=== PATIENT | female | born 1935 | race Caucasian/White ===

== ENCOUNTER 2019-03-31 15:09 | Inpatient (IN) ==
[2019-03-31] MEDS ORDERED: NS 500 ML IV ONE (15:40)
[2019-03-31] MEDS ORDERED: ZOFRAN IV ONE ×2 (15:44→18:39)
--- NOTE | 2019-03-31 15:44 | PROVIDER DOCUMENTATION ---
HPI-Abdominal Pain/GI Problem - General Chief Complaint: GI Bleed Stated Complaint: BLOOD IN STOOL Time Seen by Provider: 03/31/19 15:18 Source: patient, family Allergies/Adverse Reactions: Patient Allergies Allergy/AdvReac Type Severity Reaction Status Date / Time No Known Allergies Allergy Verified 05/18/16 22:30 Home Medications: Home Medication List Medication Instructions Recorded Confirmed Last Taken Type Aspirin 81 mg PO DAILY 09/05/15 03/14/19 03/13/19 09:00 History Cholecalciferol (Vit D3) [Vitamin 5,000 unit PO DAILY 09/05/15 03/14/19 03/13/19 09:00 History D3] Ondansetron Odt [Zofran 4 mg Odt] 4 mg PO Q6H PRN PRN #12 tablet 09/27/15 03/14/19 Unknown Rx Clopidogrel [Plavix] 75 mg PO DAILY 03/14/19 03/14/19 03/09/19 History Docusate Sodium [Colace] 200 mg PO BID 03/14/19 03/14/19 03/13/19 09:00 History Lisinopril 20 mg PO DAILY 03/14/19 03/14/19 03/13/19 09:00 History Omeprazole 40 mg PO DAILY 03/14/19 03/14/19 03/13/19 09:00 History Rosuvastatin Calcium 5 mg PO DAILY 03/14/19 03/14/19 03/13/19 09:00 History - History of Present Illness-ABD Nature of Presenting Problems: 84 YO F pmh for vascular disease, s/p multiple stent placement (not around heart) and endarterectomy presents with episode of BRBPR since BM today, feelings of n/v and being faint. Assoicated abdominal pain. Recent lung biopsy for a lung mass and currently on tx for pna with Levoquin. Also TOPHER and due for infusions on next week. Follows with Dr. Meneses. Stents placed in [place] by vascular surgeon 2 years ago. Abdominal Pain Onset Location: reports: generalized abdomen Pain Radiation: reports: no radiation Quality of Pain: reports: aching, cramping Severity in ED: reports: moderate Onset/Duration: reports: this morning Timing: reports: still present, intermittent Activities at Onset: reports: eating Exposure to sick contacts?: No Modifying Factors: improves with: nothing Last BM: this afternoon Dark Stools Present?: reports: bright red blood Review of Systems - Adult - REVIEW OF SYSTEMS - ADULT Constitutional: denies: chills, fever Eyes: reports: no symptoms reported Ears, Nose, Mouth & Throat: reports: no symptoms reported Cardiovascular: denies: chest pain, edema, palpitations Respiratory: reports: no symptoms reported Gastrointestinal: reports: see HPI, abdominal pain, nausea, vomiting Musculoskeletal: reports: no symptoms reported Neurological: reports: dizziness/vertigo, syncope Hematologic/Lymphatic: reports: low blood count, transfusions, other (TOPHER) Past History - Adult - PAST MEDICAL HISTORY-ADULT Review of Records: reports: Old Records Reviewed, Social history reviewed & non-contributory. Major Childhood Illnesses: reports: denies history Cardiovascular: reports: HTN, hyperlipidemia Gastrointestinal: reports: GERD Obstetrical/Gynecological: reports: uterine/ovarian cancer (IN 1958) - PRIOR SURGERIES/PROCEDURES Surgical/Procedure History: reports: appendectomy, tonsillectomy, other (GALLBLADDER) - IMMUNIZATION STATUS Childhood Immunizations: See Nurse Assessment Flu Vaccine: See Nurse Assessment - FAMILY HISTORY Family History: reviewed, not pertinent - SOCIAL HISTORY Substance Use: denies Living Situation: family () Physical Exam-General - PHYSICAL EXAM-ADULT Initial Vital Signs Reviewed: Yes - CONSTITUTIONAL General Appearance: alert, other (looks weak) - EYES Eyes: PERRL/EOMI, pink conjunctivae - HEAD, EARS, NOSE, MOUTH & THROAT HENMT: normocephalic/atraumatic, other (dry membranes) - RESPIRATORY Respiratory: chest non-tender, lungs clear, normal breath sounds - CARDIOVASCULAR Cardiovascular: regular rate, rhythm - GASTROINTESTINAL (ABDOMEN) Abdominal Exam: soft. negative: distended, guarding, rebound, tenderness, hernia, mass - MUSCULOSKELETAL Back Exam: normal inspection - SKIN Integumentary: normal color, normal turgor, warm/dry - NEUROLOGIC Neurologic: grossly normal - PSYCHIATRIC Psych/Mental Status: normal mood/affect, oriented x 3 Progress - PLAN OF CARE/RESULTS Progress/Plan/Lab Results: Vital Signs - 8 hr 03/31/19 15:12 Temperature 97.8 F Pulse Rate 73 Respiratory Rate 18 Blood Pressure 143/59 O2 Sat by Pulse Oximetry 95 Orders Category Date Time Status Nursing- Obtain EKG ONCE Care 03/31/19 15:40 Active Saline Loc NOW Care 03/31/19 15:37 Active NPO Diet 03/31/19 15:[address] ABD/PELVIS W/IV CONT ONLY [CT] Stat Exams 03/31/19 15:39 Ordered CBC WITH ELECTRONIC DIFF [HEME] Stat Lab 03/31/19 15:37 Uncollected COMPREHENSIVE METABOLIC PANEL [CHEM] Stat Lab 03/31/19 15:39 Uncollected PROTIME WITH INR [COAG] Stat Lab 03/31/19 15:39 Ordered PTT [COAG] Stat Lab 03/31/19 15:39 Ordered TYPE & SCREEN [BBK] Stat Lab 03/31/19 15:40 Uncollected 0.9% Sodium Chloride Inj [Ns] 500 ml Med 03/31/19 15:40 Active IV 999 mls/hr EKG [EKG] Stat Ther 03/31/19 15:37 Ordered Result Diagrams: 03/31/19 16:01 03/31/19 16:01 - REASSESSMENT Reassessment #1 Time Reassessed: 17:14 Status: improving (labs reviewed and acceptable. CT pending) - EKG 1 Time of EKG reading by physician:: 16:33 EKG Read and Signed by:: Florentino Zuluaga EKG Interpretation (*Must complete 3 of following elements*): Abnormal Rate: 64 Rhythm: NSR [place]: normal QRS: other (2mm q waves in v5) ST Wave: non-specific ST changes (inverted p waves V1,) Prior EKG Comparison: no prior EKG - CONSULTS/PCP/HOSPITALIST Notification #1 *Consult/PCP/Hospitalist*: Dr. Copeland Time Discussed: 18:09 Consult Disposition: Will see in ED Departure - Departure Date of Disposition Decision: 03/31/19 Time of Disposition Decision: 19:04 DIAGNOSIS: Diverticulitis, Abdominal pain, Rectal bleeding Disposition: ADMITTED INPATIENT 09 Certified Medical Emergency: Emergent Condition: Stable Referrals and Follow-Ups: Arjun Huang MD [Primary Care Provider] - - Critical Care Note This patient required my direct & personal management of CC.: No Attestation - Physician/ DAYNE Attestation The physician spent face to face time with patient:: No Advanced Practice Provider documentation review:: Supervising physician onsite and consulted in the evaluation and care of this patient. The physician did not have a face to face encounter with the patient.
[2019-03-31 16:16] LABS: BASO# 0.05 X1000 (0.0-0.2); BASO% 0.4 % (0.0-0.8); EOS# 0.09 X1000 (0.0-0.7); EOS% 0.7 % (0.0-10.0); HEMATOCRIT 36.4 % (37.0-47.0); HEMOGLOBIN 10.9 g/dL (12.0-16.0); IMM GRAN# 0.06 X1000 (0.0-0.04); IMM GRAN% 0.5 % (0.0-0.5); LYMPH# 0.96 X1000 (1.2-3.4); LYMPH% 7.8 % (20.5-51.1); MCH 26.5 PG (27-31); MCHC 29.9 g/dL (33-37); MCV 88.6 FL (81-99); MONO# 0.95 X1000 (0.11-0.59); MONO% 7.7 % (1.7-9.3); MPV 11.1 FL (7.4-10.4); NEUT# 10.21 X1000 (1.4-6.5); NEUT% 82.9 % (42.2-75.2); PLT 327 X1000 (130-400); RBC 4.11 XMIL (4.2-5.4); RDW 14.8 % (11.5-14.5); WBC 12.32 X1000 (4.8-10.8)
[2019-03-31 16:42] LABS: INR 0.99; PROTIME 13.2 Seconds (11.0-16.0)
[2019-03-31 16:43] LABS: PTT 38.7 Seconds (22.3-41.8)
--- NOTE | 2019-03-31 16:49 | EKG Report ---
Test Performed on : 03/31/2019 4:31:45 PM Test Reason : CP Blood Pressure : / mmHG Vent. Rate : 064 BPM Atrial Rate : 064 BPM P-R Int : 166 ms QRS Dur : 086 ms QT Int : 440 ms P-R-T Axes : 066 -12 082 degrees QTc Int : 453 ms Normal sinus rhythm. Possible Left atrial enlargement Cannot rule out Inferior infarct , age undetermined Abnormal ECG No previous ECGs available Unconfirmed Result
[2019-03-31 16:52] LABS: ALB/GLOB RATIO 1.3; CALCIUM 9.3 mg/dL (8.8-10.2); POTASSIUM 4.5 mmol/L (3.5-5.1); TOTAL BILIRUBIN 0.22 mg/dL (0.20-1.00); TOTAL PROTEIN 7.1 g/dL (6.3-8.3)
--- NOTE | 2019-03-31 17:40 | Diag Imaging Result Doc PS360 ---
EXAM: CT ABD/PELVIS W/IV CONT ONLY INDICATION: abd pain, BRBPR TECHNIQUE: This exam was performed using automated exposure control, adjustment of mA or kV according to patient size, and/or use of iterative reconstruction technique. COMPARISON: None. FINDINGS: There is a moderate-sized right pleural effusion and right basilar atelectasis. There has been a prior cholecystectomy. There are several calcified granulomata in the liver and spleen. The pancreas and adrenal glands are grossly unremarkable. There are several small renal cysts bilaterally. There is no hydronephrosis. The kidneys are grossly unremarkable, otherwise. The urinary bladder appears normal. There is advanced diverticulosis coli. There is mild inflammatory stranding that appears to emanate from a diverticulum at the proximal sigmoid colon indicating diverticulitis. No pericolonic abscess or free abdominal gas is appreciated. There are a few loops of small bowel with mild distention likely representing mild ileus. There is nothing that would necessarily indicate obstruction. There is a very small hiatal hernia. The remainder of the GI tract is essentially unremarkable. There is extensive aortoiliac atherosclerotic calcification. There are stents in the SMA and in the left renal artery. They appear to be patent. There has been prior vertebroplasty at T12. There is no evidence of acute osseous abnormality. IMPRESSION: 1.Mild diverticulitis involving the proximal sigmoid colon with no CT evidence of perforation. 2.Moderate-sized right pleural effusion and right basilar atelectasis. 3.A few mildly distended loops of small bowel indicating mild ileus. 4.Other incidental/nonacute findings detailed above. Electronically signed by Brandon Tejeda 03/31/2019 5:38 PM
[2019-03-31] MEDS ORDERED: FLAGYL 500 MG/NS 500 MG/100 ML IVPB IV ONE (18:05)
[2019-03-31] MEDS ORDERED: ROCEPHIN 1 GM in NS 50 ML IV ONE (18:06)
[2019-03-31] MEDS ORDERED: MORPHINE IV ONE (18:39)
--- NOTE | 2019-03-31 19:48 | HISTORY AND PHYSICAL ---
PRIMARY CARE PROVIDER: Dr. Haresh Delarosa ONCOLOGIST: Arjun Huang MD VASCULAR SURGEONS: Dr. Jordan Chaudhry and Rsohan Canela MD CHIEF COMPLAINT: Bright red blood and abdominal cramping. HISTORY OF PRESENT ILLNESS: Ms. Izaguirre is an 84-year-old female who carries a past medical history of carotid artery disease, arthritis, high blood pressure, uterine and cervical cancer status post total hysterectomy, recent diagnosis of lung mass that was found to be benign after a CT-guided biopsy. She was also being treated for pneumonia on Wednesday. This morning, when she got up and had breakfast, she started having immediate stomach cramps. She went to the bathroom and had bright red blood per rectum. She had a total of 3 vomiting episodes and she came to the ED to be evaluated where she was found to have mild diverticulitis and a mild ileus. She does report that she has 3 stents in her abdomen from where a place had closed up. Those were placed by Dr. Chaudhry with vascular in [place]. She was initiated on IV antibiotics. We place her on IV fluids, antiemetics and pain regimen. PAST MEDICAL HISTORY: 1. Carotid artery disease. 2. Vasculopathic. 3. Hypertension. 4. GERD. PAST SURGICAL HISTORY: 1. Total hysterectomy. 2. Left carotid endarterectomy. 3. Three stents in the lower abdomen. The last one was on 12/12/2018. 4. CT-guided left upper lobe pulmonary mass biopsy. 5. Appendectomy. 6. Cholecystectomy. 7. Tonsillectomy. FAMILY HISTORY: Father in his sleep at the age of 65. Maternal grandmother with diabetes. Sister with diabetes. Mother with breast cancer at the age of 87, lived to be 93. SOCIAL HISTORY: She is . is at bedside. She is from [place]. She was a heavy smoker for more than 40 years, a pack to a pack and half per day. She quit smoking yesterday. No alcohol or illicit drug use. She has 1 daughter who is 65 years of age. REVIEW OF SYSTEMS: Twelve-point review of systems completely negative except for those mentioned in HPI. ALLERGIES: No known drug allergies. MEDICATIONS: Home medications are currently being compiled. However, she states she does no longer take a statin. PHYSICAL EXAMINATION: VITAL SIGNS: Temperature was 97.8 degrees, heart rate 85, respirations 14, blood pressure 150/62, O2 is 99% on room air. GENERAL: Ms. Izaguirre is a pleasant 84-year-old female who is sitting up in the bed in no acute distress, although she did have an episode of nausea and had to sit up. HEENT: Atraumatic, normocephalic. PERRL. NECK: Supple trachea midline. CARDIOVASCULAR: S1, S2 appreciated. No murmurs, gallops, or rubs noted. RESPIRATORY: Lung sounds clear bilaterally. No rales, rhonchi, or wheezes. GASTROINTESTINAL: Soft, diffusely tender. Hypoactive bowel sounds. LOWER EXTREMITIES: Negative for edema. NEUROLOGIC: No focal deficits noted. LAB/DIAGNOSTIC DATA: Abdomen and pelvis CT showed mild diverticulitis involving the proximal sigmoid colon without perforation. Moderate size right pleural effusion and right basilar atelectasis. A few mildly distended loops of small bowel indicating mild ileitis. Small hiatal hernia. Extensive aortic iliac atherosclerotic calcification. Stents in the SMA and in the left renal artery and prior vertebroplasty at T12. ASSESSMENT/PLAN: 1. Mild diverticulitis. The patient has had bright red blood per rectum. She has been on recent antibiotic with Levaquin. We will check occult stools as well as stool studies. Rule out Clostridium difficile. Continue antibiotics with Zosyn. 2. Mild ileus, currently NPO. We will chips and sips unless Dr. Copeland lets her have a clear liquid diet. 3. Recent diagnosis of pneumonia on Wednesday. We will continue with IV Zosyn. 4. Right lung mass that is benign. 5. Anemia. The patient will be getting iron infusion next week with Dr. Huang-she has already gotten a B12 shot. 6. Hypertension. 7. Peripheral vascular disease. 8. Gastroesophageal reflux disease. Code status DNR level 1 per patient's has been at bedside. She does have a living will. She states it is on file here. 9. Further recommendation to follow physician evaluation, laboratory and diagnostic data. Dictated by ARTURO White for Jaime Copeland MD cc: MD Ravi Franco MD Robert C. Walker, MD
--- NOTE | 2019-03-31 19:58 | HISTORY AND PHYSICAL ---
ADDENDUM: SUBJECTIVE: Ms. Izaguirre is a patient of Dr. Chaudhry, the vascular surgeon in [facility]. She has undergone multiple stent placements in the abdominal artery circulation, SMA and the renal artery. She also follows up with Dr. Huang for iron deficiency and B12 deficiency. Ms. Izaguirre was recently diagnosed with pneumonia and was started on Levaquin for the past 3 days. She refers that this morning she started having some cramping abdominal pain. At some point, she passed out and then after she recovered, she wanted to use the restroom, which was just pure bright red blood. She then got scared, so she came to the emergency department where she was evaluated and she has been admitted for abdominal pain and proximal sigmoid diverticulitis and ileus. OBJECTIVE: Vital signs: Blood pressure is 150/62, pulse of 85, respiration is 18, temperature is 97.8 degrees. General: Ms. Izaguirre is an 84-year-old elderly female. She is in bed no distress. Mucosa is pink and moist. Anicteric. Acyanotic. Neck: Supple. Abdomen: Soft. It is minimally tender everywhere but no guarding, no rebound. Bowel sounds are present. Extremities: No pedal edema. 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 LABORATORIES: Patient's lab works have also been reviewed and no major abnormalities. Her white cell count is 12.32, hemoglobin is 10.9, platelet count of 327,000. IMAGING: The CT scan of the abdomen and pelvis showed a mild diverticulitis involving the proximal sigmoid colon, moderate-sized right pleural effusion and right basilar atelectasis, a few my mildly distended loops of small bowel indicating mild ileus. There is also extensive aortoiliac atherosclerotic calcification, stents in the SMA and the left renal artery. They appeared to be patent. ASSESSMENT: 1. Painful bright red blood per rectum. For now, the patient seems to be hemodynamically stable. We are going to be following up on her hemoglobin and hematocrit. She has not had any more bowel movement; however, if she continues profusely bleeding, we will get Gastroenterology tonight. 2. Mild diverticulitis of the proximal sigmoid colon. The patient will be started on broad- spectrum IV antibiotics. 3. Distended loops of small bowel indicative of mild ileus with the history of severe or extensive aortoiliac atherosclerotic calcification and the rectal bleed. This is also concerning for ischemic enterocolitis. I have ordered the lactate level to check on that and we will keep eye on her other lab work. 4. Status post superior mesenteric artery stent placement and the left renal artery stent placement due to atherosclerosis. The patient follows up with Dr. Chaudhry. 5. History of iron deficiency and B12 deficiency. Follows up with Dr. Huang. We will notify them. 6. Please refer to the details of history and physical which has been dictated in the chart by the Nurse Practitioner. cc: Jaime Copeland MD
[2019-03-31] MEDS ORDERED: ZOFRAN IV PRN ×2 (20:21)
[2019-03-31] MEDS ORDERED: NS 1,000 ML IV SCH (20:21)
[2019-03-31] MEDS ORDERED: APRESOLINE IV PRN (20:21)
[2019-03-31] MEDS: ZOSYN 3.375 GM in NS 50 ML IV SCH (23:00)
[2019-03-31] MEDS: NS 1,000 ML IV SCH (23:00)
[2019-03-31] MEDS: MORPHINE IV PRN (23:05)
[2019-04-01] MEDS: ZOSYN 3.375 GM in NS 50 ML IV SCH ×4 (05:34→22:48)
[2019-04-01 07:55] LABS: BASO# 0.08 X1000 (0.0-0.2); BASO% 0.7 % (0.0-0.8); EOS# 0.34 X1000 (0.0-0.7); HEMATOCRIT 31.8 % (37.0-47.0); HEMOGLOBIN 9.4 g/dL (12.0-16.0); IMM GRAN# 0.03 X1000 (0.0-0.04); IMM GRAN% 0.3 % (0.0-0.5); LYMPH# 1.75 X1000 (1.2-3.4); LYMPH% 15.7 % (20.5-51.1); MCH 26.7 PG (27-31); MCHC 29.6 g/dL (33-37); MCV 90.3 FL (81-99); MONO# 1.26 X1000 (0.11-0.59); MONO% 11.3 % (1.7-9.3); NEUT# 7.71 X1000 (1.4-6.5); PLT 286 X1000 (130-400); RBC 3.52 XMIL (4.2-5.4); RDW 14.9 % (11.5-14.5); WBC 11.17 X1000 (4.8-10.8)
--- NOTE | 2019-04-01 08:18 | PROGRESS NOTE ---
DATE: 04/01/2019 SUBJECTIVE: This morning, Ms. Izaguirre refers to be doing a lot better. Abdominal pain has improved. She has not had any rectal hemorrhaging. However, according to the nurse, there was a little stain in her Pampers. OBJECTIVE: Vital signs: Blood pressure is 123/ 66, pulse of 60, respiration is 17, temperature is 98 degrees. General: Ms. Izaguirre is an 84-year-old female. She is in bed no distress. HEENT: Mucosa is pink and moist. Anicteric. Acyanotic. Neck: Supple. Chest: Good air entry bilaterally. There was no crepitations, no rhonchi. Cardiovascular: Regular rate and rhythm. Abdomen: Soft, minimally tender periumbilically but no rebound, no guarding. Central nervous system: Patient was awake, alert, oriented. There is no focal neurological deficit. LABORATORY DATA: Not ready at the time of the dictation. ASSESSMENT AND PLAN: 1. Painful rectal bleed. The patient seems to be hemodynamically stable. It does not appear that she continues to be bleeding. Will be waiting on her hemoglobin and hematocrit and go from there. 2. Mild diverticulitis of the proximal sigmoid colon. The patient has been started on broad- spectrum antibiotics. She seems to be responding well. Abdominal pain has significantly improved. 3. Mild ileus on admission. 4. 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 The patient follows up with Dr. Chaudhry in [facility]. 5. History of iron and B12 deficiency. Patient follows up with Dr. Huang. We will continue with the replacement. DISPOSITION: In general, I think Ms. Izaguirre is doing a lot better. She does not seems to be hemorrhaging anymore. Will be pending her hemoglobin and hematocrit this morning and address possible transfusion. She will continue with the current antimicrobial coverage and we will follow her hemodynamically. cc: [facility]eland [facility]
[2019-04-01 08:22] LABS: ALB/GLOB RATIO 1.2; ALBUMIN 3.3 g/dL (3.5-5.0); CALCIUM 7.7 mg/dL (8.8-10.2); MAGNESIUM 1.9 mg/dL (1.5-2.7); TOTAL BILIRUBIN 0.28 mg/dL (0.20-1.00)
[2019-04-01 13:51] LABS: HEMATOCRIT 31.6 % (37.0-47.0); HEMOGLOBIN 9.3 g/dL (12.0-16.0)
[2019-04-01] MEDS: NS 1,000 ML IV SCH (18:29)
[2019-04-01] MEDS: MORPHINE IV PRN (18:41)
[2019-04-02] MEDS: NS 1,000 ML IV SCH (03:04)
[2019-04-02] MEDS: ZOSYN 3.375 GM in NS 50 ML IV SCH ×4 (04:31→22:13)
[2019-04-02 08:06] LABS: HEMATOCRIT 31.1 % (37.0-47.0); HEMOGLOBIN 9.1 g/dL (12.0-16.0); MCH 26.6 PG (27-31); MCHC 29.3 g/dL (33-37); MCV 90.9 FL (81-99); MPV 11.4 FL (7.4-10.4); RBC 3.42 XMIL (4.2-5.4); RDW 14.9 % (11.5-14.5); WBC 9.95 X1000 (4.8-10.8)
[2019-04-02 08:20] LABS: CALCIUM 8.1 mg/dL (8.8-10.2); CREATININE 0.9 mg/dL (0.5-0.9); PHOSPHORUS 2.3 mg/dL (2.7-4.5); POTASSIUM 4.2 mmol/L (3.5-5.1)
--- NOTE | 2019-04-02 14:04 | PROGRESS NOTE ---
DATE: 04/02/2019 This morning Ms. Izaguirre refers to be doing a lot better. She said she had a very good bowel movement yesterday which did not have any blood at all. OBJECTIVE: Vital signs: Blood pressure is 140/42, pulse of 75, respirations 22, temperature 98.8 degrees. General: Ms. Izaguirre is an 84-year-old female. She is in bed, no distress. HEENT: Mucosa is pink and moist. Anicteric. Acyanotic. Neck: Supple. Chest: Clear to auscultation. There are no crepitations, no rhonchi. Cardiovascular: Regular rate and rhythm. No murmurs. Abdomen: Soft, nontender. Bowel sounds present. Extremities: No pedal edema. 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 LABORATORY DATA: WBC 9.95, hemoglobin 9.1, platelet count of 282,000. Chemistry is reviewed; it is completely normal. Phosphorus is 2.3. MICROBIOLOGY DATA: The patient's C difficile toxin was negative; however, the antigen is positive. The patient is currently not symptomatic, so I do not think she needs to be treated for that. ASSESSMENT: 1. Painful rectal bleed. This is resolved. Hemoglobin and hematocrit are fairly stable. 2. Mild diverticulitis of the proximal sigmoid colon. The patient is on broad- spectrum IV antibiotics. 3. Mild ileus on presentation, improved. 4. Status post SMA and left renal artery stent placement by Dr. Chaudhry in [facility]. The CT scan on presentation seems to suggest that the stents are in place and patent. 5. History of iron and B12 deficiency. Patient follows up with Dr. Huang. 6. Recently treated for a right lower lobe pneumonia. 7. Right lower lobe pleural effusion on the recent CT scan. Patient is currently asymptomatic. In general, Ms. Izaguirre got admitted because of abdominal pain and rectal bleed which have resolved. CT scan did reveal a mild diverticulitis. She is currently on antimicrobial coverage. She is feeling a lot better. I think we can switch her antibiotics oral and discharge her tomorrow. She will need to continue to follow up with Dr. Chaudhry and Dr. Huang. cc: Jaime Copeland MD [facility]
--- NOTE | 2019-04-02 16:17 | CONSULTATION ---
DATE OF CONSULTATION: 04/02/2019 Patient is seen. Detail note to follow. IMPRESSION: 1. Abdominal pain and rectal bleeding. Rule out ischemic colitis in view of her extensive vascular disease and superior mesenteric artery stents. 2. Possible diverticulitis. 3. Ileus secondary to colon related problem. 4. Extensive atrial sclerotic disease. 5. Iron and B12 deficiency. 6. Right lower lobe pneumonia. PLAN: Continue symptomatic treatment. The bleeding has since stopped. The patient is doing better. Advance the diet as tolerated. cc: Jamal Tolbert MD
[2019-04-02] MEDS: CULTURELLE PO SCH (21:34)
[2019-04-03] MEDS: ZOSYN 3.375 GM in NS 50 ML IV SCH ×2 (05:35→10:57)
[2019-04-03 07:33] VITALS: BP 179/58
[2019-04-03 07:44] LABS: HEMATOCRIT 29.9 % (37.0-47.0); HEMOGLOBIN 9.2 g/dL (12.0-16.0); MCH 27.5 PG (27-31); MCHC 30.8 g/dL (33-37); MCV 89.5 FL (81-99); RBC 3.34 XMIL (4.2-5.4); RDW 14.6 % (11.5-14.5); WBC 9.67 X1000 (4.8-10.8)
[2019-04-03 07:53] LABS: ALBUMIN 3.1 g/dL (3.5-5.0); CALCIUM 8.1 mg/dL (8.8-10.2); CREATININE 0.9 mg/dL (0.5-0.9); PHOSPHORUS 2.6 mg/dL (2.7-4.5); POTASSIUM 3.7 mmol/L (3.5-5.1)
[2019-04-03] MEDS: CULTURELLE PO SCH (08:10)
[2019-04-03] MEDS ORDERED: PEPCID IV SCH (09:15)
[2019-04-03] MEDS ORDERED: SODIUM CHLORIDE 0.9% INJ SCH (09:15)
--- NOTE | 2019-04-03 14:22 | GASTROENTEROLOGY CONSULTATION ---
DATE: 04/03/2019 REASON FOR CONSULT: Diverticulitis & ileus. HISTORY OF PRESENT ILLNESS: Ms. Izaguirre is an 84-year-old female with a past medical history of carotid artery disease, arthritis, high blood pressure, uterine and cervical cancer status post total hysterectomy, recent diagnosis of lung mass that was found to be benign with CT guided biopsy. She came to the hospital on Wednesday with complains of losing a lot of blood. She has 4 vascular stents in her abdomen placed by Dr. Chaudhry at [place]. Patient mentioned having blockages in her arteries, and because of a plaque that caused a blockage in her stomach blood flow, they had to place stents. She has been complaining of bloating, cramping, with nausea and vomiting. Her cramping was so severe that she passed out, she remembers having sweating and chills. She said that her bowel movements have been regular. She has denied any bleeding today. Patient is on Plavix 75 mg daily.. PAST MEDICAL HISTORY: Carotid artery disease, hypertension, GERD, and vasculopathy. PAST SURGICAL HISTORY: Total hysterectomy, left carotid endarterectomy, 4 stents in the mesenteric vasculature last one was done in November. CT-guided upper lobe pulmonary mass biopsy, appendectomy, cholecystectomy, and tonsillectomy. ALLERGIES: No known drug allergies. FAMILY HISTORY: Mother had breast cancer. Grandmother had diabetes. Sister has diabetes. Father in his sleep. SOCIAL HISTORY: She is , lives with her . She is a smoker. She smokes more than a pack a day. Denies any alcohol or illicit drug use. She has 1 daughter. HOME MEDICATIONS: Vitamin D3 at 5000 units daily, aspirin 81 mg daily, Colace 200 mg twice a day, omeprazole 40 mg daily, rosuvastatin 5 mg daily, Plavix 75 mg daily, lisinopril 20 mg daily. REVIEW OF SYSTEMS: As per HPI. Otherwise, 12-point review of systems is negative. PHYSICAL EXAMINATION: Vital Signs: Temperature 97.7 degrees, pulse is 67, respirations 16, blood pressure 179/58, oxygen saturation 95% on room air. The patient's weight is 155 pounds. BMI is 27.5 kg/m2. General: She is alert, oriented x3. Good historian. No acute distress. HEENT: Pale conjunctivae. No icterus. PERRL. Neck: Supple. Lungs: Clear to auscultation in anterior acosta. Cardiovascular: Regular rate and rhythm. No murmurs, rubs, or gallops heard on auscultation. Abdomen: Soft, tender, mildly distended. Hypoactive bowel sounds heard in all 4 quadrants. Extremities: No clubbing, no cyanosis, no edema. Pedal pulses 2+ present bilaterally. Neurologic: Alert, oriented x3. Nonfocal. Cranial nerves II through XII grossly intact. LABORATORY DATA: WBCs 9.67, RBC 3.34, hemoglobin 9.2, hematocrit 29.9, platelet count is 268,000. Sodium 139, potassium 3.7, chloride 104, carbon dioxide 23, anion gap 12, BUN 9, creatinine 0.9, glucose 99, calcium 8.1. Phosphorus 2.6. Total bilirubin 0.828, AST 11, ALT 5, alkaline phosphatase is 64, albumin is 3.1. CT of the abdomen and pelvis showed mild diverticulitis involving the proximal sigmoid colon, with no CT evidence of perforation, moderate- sized right pleural effusions and right basilar atelectasis, few mildly distended loops of small bowel indicating mild ileus. IMPRESSION AND PLAN: Diverticulitis/ Colitis - ? Ischemic; But CT scan suggesting Diverticulitis. Mesenteric Vascular disease S/P stent placement with Dr. Chaudhry at [facility] Rectal bleeding- Now resolved. Anemia GERD Hypertension Chronic Smoker Peripheral Arterial Disease Constipation PLAN: Patient has diverticulitis, she is receiving Flagyl and Rocephin. Patient was started on IV pepcid, for GI Prophylaxis. She is on centrum silver multivitamin for anemia and culturelle for her probiotics effect for bowel regimen while continuing antibiotics. Counseled to quit smoking. We have advised the patient to have a high-fiber diet. Avoid foods with excessive nuts, seeds and corn. Continue bowel regimen with colace at home. The patient acknowledges understanding of the instruction. This plan was discussed with Dr. Overton. She plans to follow up with her doctors at [facility]. She will return to ER for any worsening symptoms. Thank you for your consult. Please call us for any further questions or concerns. Dictated by ARTURO Finnegan for Arthur Overton MD cc: Arthur Overton MD Patient seen and examined by myself. I agree with the above plan of care. I have discussed the above with the patient and family at bedside and all questions were answered. Please call us with any further questions. LUNAD
[2019-04-04] MEDS ORDERED: CENTRUM SILVER PO SCH (09:00)
--- NOTE | 2019-04-04 12:27 | DISCHARGE SUMMARY ---
ADMISSION DATE: 03/31/2019 DISCHARGE DATE: 04/03/2019 DISPOSITION: Home. FOLLOWUP: 1. Dr. Huang. 2. Dr. Overton. 3. Dr. Jordan Chaudhry in [facility]. CONSULTATIONS DURING THIS ADMISSION: GI was consulted. Patient was seen by Dr. Tolbert. INVASIVE PROCEDURES DONE DURING THIS ADMISSION: None. IMAGING STUDIES OF SIGNIFICANCE: A CT scan of the abdomen and pelvis did show mild diverticulitis involving the proximal sigmoid colon, moderate-sized right pleural effusion, a few mildly distended loops of small bowel indicating mild ileus. ADMISSION DIAGNOSES: 1. Mild diverticulitis. 2. Mild ileus. 3. Recent diagnosis of pneumonia. 4. Anemia. 5. Peripheral vascular disease. DIAGNOSES AT THE TIME OF DISCHARGE: 1. Painful lower gastrointestinal bleed, most likely due to ischemic colitis. 2. Mild diverticulitis of the proximal sigmoid, improved. 3. Mild ileus on presentation, resolved. 4. Status post superior mesenteric artery stent placement by Dr. Chaudhry in [facility] and also a left renal artery stent. 5. History of iron and B12 deficiencies. The patient follows up with Dr. Huang with regular infusions. 6. Recently treated for right lower lobe pneumonia. 7. Right lower lobe pleural effusion on a recent CT scan. Patient is completely asymptomatic. DISCHARGE MEDICATIONS: 1. Cholecalciferol. 2. Aspirin 81 mg p.o. daily. 3. Colace 200 mg p.o. b.i.d. 4. Omeprazole 40 mg p.o. daily. 5. Crestor 5 mg p.o. daily. 6. Clopidogrel 75 mg p.o. daily. 7. Lisinopril 20 mg p.o. daily. 8. Metronidazole 250 three times per day. 9. Multivitamin. 10. Culturelle 1 tablet b.i.d. 11. Continue levofloxacin which patient was already taking on an outpatient base. PRESENTING COMPLAINT: Bright red blood and abdominal cramping. HISTORY OF PRESENTING COMPLAINT: Ms. Izaguirre is an 84-year-old, elderly, female who has a history of mesenteric artery stenosis, status post SMA and stent placement. She is also status post carotid endarterectomy. She is hypertensive, GERD, who came to the emergency department because of abdominal cramping associated with bright red blood per rectum. Ms. Izaguirre was admitted to the medical floor for further medical care. HOSPITAL COURSE: Ms. Izaguirre was admitted to the medical floor. She was started on broad-spectrum IV antibiotics. Her hemoglobin and hematocrit were trended every day. It fairly remained around 9.2. Ms. Izaguirre did not have any more rectal bleed. She was found out also on a CAT scan to have mild diverticulitis, for which the antibiotic did cover as well. Her stool C. difficile toxin was negative; however, the antigen was positive. However, Ms. Izaguirre was not having any diarrhea, so we did not think that this was a C. difficile colitis. However, she was being treated for both diverticulitis and ischemic colitis with metronidazole which will cover C. difficile as well. Throughout the hospital course, Ms. Izaguirre continued to show improvement. She has been tolerating her diet. She has not had any more rectal bleed. Abdominal cramps have significantly resolved. She has consumed 100% of a GI soft diet. We think Ms. Izaguirre is now ready for discharge. She was evaluated during the hospital course by GI as well and because Ms. Izaguirre already has a followup with Dr. Chaudhry in [facility], they recommended that she just follow up since she is not actively bleeding anymore. Ms. Izaguirre is therefore being discharged in stable condition. All the discharge instructions have been discussed with her and she voiced understanding. The was also at the bedside at the time of the encounter and he also voiced understanding. Time spent for discharge is 40 minutes. cc: MD Arthur Franco MD Sammy Becdach, MD Adam W. Beck
== END 2019-04-03 11:27 | disposition home or self-care (01) | DRG 393 ==
LOC: ED 15:09 → EDIPHOLD 20:12 → 3N 21:14
PROVIDERS: ATTEND Internal Medicine

== ENCOUNTER 2019-04-11 14:13 | Inpatient (IN) ==
[2019-04-11] MEDS ORDERED: ZOFRAN IV PRN (14:59)
--- NOTE | 2019-04-11 15:20 | EKG Report ---
Test Performed on : 04/11/2019 3:13:06 PM Test Reason : chest pain Blood Pressure : / mmHG Vent. Rate : 075 BPM Atrial Rate : 075 BPM P-R Int : 150 ms QRS Dur : 082 ms QT Int : 396 ms P-R-T Axes : 067 077 082 degrees QTc Int : 442 ms Normal sinus rhythm. Cannot rule out Anterior infarct , age undetermined Abnormal ECG When compared with ECG of 31-MAR-2019 16:31, (Unconfirmed) Minimal criteria for Inferior infarct are no longer present Unconfirmed Result
--- NOTE | 2019-04-11 15:25 | Diag Imaging Result Doc PS360 ---
EXAM: CHEST-PORTABLE HISTORY: pl effussion, pulm nodule TECHNIQUE: Single view COMPARISON: 04/10/2019 FINDINGS: Persistent moderate-sized right pleural effusion with basilar atelectasis and underlying infiltrates. Nodular area in the mid right lung persists. No pulmonary edema. Left granuloma. IMPRESSION: No significant interval change. Electronically signed by Kodak Bolton 04/11/2019 3:22 PM
[2019-04-11 15:35] LABS: BASO# 0.09 X1000 (0.0-0.2); BASO% 0.7 % (0.0-0.8); EOS# 0.68 X1000 (0.0-0.7); EOS% 5.3 % (0.0-10.0); HEMOGLOBIN 10.4 g/dL (12.0-16.0); IMM GRAN# 0.08 X1000 (0.0-0.04); IMM GRAN% 0.6 % (0.0-0.5); LYMPH# 1.86 X1000 (1.2-3.4); LYMPH% 14.5 % (20.5-51.1); MCH 27.4 PG (27-31); MCHC 30.6 g/dL (33-37); MCV 89.7 FL (81-99); MONO# 1.64 X1000 (0.11-0.59); MONO% 12.8 % (1.7-9.3); MPV 10.9 FL (7.4-10.4); NEUT# 8.45 X1000 (1.4-6.5); NEUT% 66.1 % (42.2-75.2); PLT 360 X1000 (130-400); RBC 3.79 XMIL (4.2-5.4); RDW 15.9 % (11.5-14.5)
[2019-04-11 15:46] LABS: INR 1.07
[2019-04-11 15:47] LABS: PTT 40.3 Seconds (22.3-41.8)
--- NOTE | 2019-04-11 16:31 | CARDIOLOGY CONSULTATION ---
DATE: 04/11/2019 HISTORY OF PRESENT ILLNESS: Ms. Izaguirre is an 84-year-old lady with a history of carotid disease, arthritis, high blood pressure, mitral stenosis, and mitral regurgitation, was diagnosed to have a lung mass that was noted to be benign after a CT-guided biopsy. However, she had a PET scan done at [facility] and a CT scan which per family was noted to be concerning for malignancy. She was admitted here recently, underwent thoracentesis as well. She is admitted with increasing shortness of breath. Chest x-ray revealed decreasing right-sided pleural effusion. From a cardiac standpoint, she has had mitral valve prolapse, mitral regurgitation. Was seen by a camp director in [place]. By echocardiogram at that time, she had moderate mitral regurgitation and mild mitral stenosis. She does not complain of any chest pain suggestive of angina. She has shortness of breath. She during her recent visit was treated for pneumonia. During her last hospitalization she also had nausea and vomiting. She was noted to have diverticulitis with mild ileus. REVIEW OF SYSTEMS: A 14 point review of system was done. GI System: There is no recent nausea, vomiting. There is no history of hematemesis or melena. Central nervous system: No focal weakness to suggest a CVA, TIA. System: There is no dysuria or hematuria. PAST MEDICAL HISTORY: 1. Moderate mitral regurgitation and mitral stenosis. 2. History of peripheral vascular disease. 3. Left carotid endarterectomy. 4. She has had abdominal stents placed, exact history not aware at the present time. 5. Hypertension. 6. Gastroesophageal reflux disease. 7. Vasculopathy. 8. Tonsillectomy. 9. Cholecystectomy. 10. Appendectomy. 11. Left carotid endarterectomy. 12. Hysterectomy. FAMILY HISTORY: Father in his sleep at the age of 65. Mother had diabetes. SOCIAL HISTORY: She is . Lives in [place]. She was a heavy smoker. Smoked for more than 40 years, a pack and a half of cigarettes. She quit smoking recently. PHYSICAL EXAMINATION: Vital Signs: Stable. Cardiovascular system: First and second heart sounds were heard. There was a systolic murmur and diastolic murmur. Respiratory System: Dullness at the right base. A Few scattered crepitations. Abdomen: Soft, nontender. There was no guarding or rigidity. Bowel sounds were heard. Central nervous system: Alert and oriented. Was moving all 4 extremities. Extremities: Examination of the extremities reveals no pedal edema. HEENT: Atraumatic, normocephalic. Pupils were reacting to light. ASSESSMENT AND PLAN: 1. Ms. Pippa Izaguirre is an 84-year-old lady who has peripheral vascular disease, status post carotid endarterectomy and stent placement in the lower abdomen, hypertension, gastroesophageal reflux disease, has moderate mitral regurgitation and stenosis. 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 Has history of pneumonia and recurrent right-sided pleural effusion. She is admitted with increasing shortness of breath. From a cardiac standpoint, we will get an echocardiogram to assess cardiac and valvular function. 2. Tests are planned as far as recurrent right-sided pleural effusion is concerned. Recent pleural tap was unremarkable; however, she has increasing pleural effusion. Would recommend proceeding with testing for further evaluation and procedures required to evaluate the etiology. She was seen at [facility] as well and was noted to have a PET scan which was abnormal at that time. I have not made any changes to her medications. She also has history of mesenteric vascular insufficiency, is followed by Dr. Jordan Chaudhry at [facility]. Her home medications include Colace, Plavix, aspirin, Crestor, lisinopril, and omeprazole. I have not made any changes. Prior to further procedures, may need to hold the Plavix. Would recommend stopping medications as required prior to any procedures. Thank you for the consult. cc: Raffalee Wellington MD
--- NOTE | 2019-04-11 16:51 | Diag Imaging Result Doc PS360 ---
CT THORAX W/O CONTRAST - 04/11/2019 INDICATION: complex effusion, ? empyema COMPARISON: Chest x-ray 04/11/2019 FINDINGS: There is a moderately large right pleural effusion measuring about 8 cm in average depth. This is about 50% of the hemithorax. This is free-flowing and appears simple. Stable malignant appearing nodule in the right upper lobe that has been previously biopsied. No new nodules or infiltrates. The left lung appears clear. IMPRESSION: Moderately large simple right pleural effusion. This exam was performed using automated exposure control, adjustment of mA or kV according to patient size, and/or use of iterative reconstruction technique Electronically signed by Geovani Ricardo 04/11/2019 4:49 PM
--- NOTE | 2019-04-11 18:41 | PROGRESS NOTE ---
DATE: 04/11/2019 ADVANCE CARE NOTE: I did discuss end of life care with her and she was very adamant that she herself, the patient, did state that she did not want any aggressive measures if it came to putting her on a breathing machine or significant CPR, or anything to that effect. She was very determined on this. Her agreed with her. So, patient has been made a Do Not Resuscitate 1 by her own admonition. cc: George Diggs MD
--- NOTE | 2019-04-11 19:46 | HISTORY AND PHYSICAL ---
PRIMARY CARE PROVIDER: Dr. Haresh Delarosa. ONCOLOGIST: Dr. Arjun Huang. VASCULAR SURGEON: Dr. Jordan Chaudhry and Dr. Roshan Canela. CHIEF COMPLAINT: Direct admit for a large right pleural effusion. HISTORY OF PRESENT ILLNESS: Ms. Izaguirre is an 84-year-old female who was recently discharged from our service for diverticulitis. She carries a past medical history of coronary artery disease, arthritis, high blood pressure, uterine and cervical cancer status post total hysterectomy, recent diagnosis of lung mass that was found to be benign after a CT-guided biopsy. She reported after her last discharge she went home and continued to feel short of breath. She had a followup with Dr. Huang today who did a chest x-ray that showed a large right pleural effusion. He sent her over to be a direct admission and to have an ultrasound-guided thoracentesis in the a.m. with cardiology and pulmonology consult. PAST MEDICAL HISTORY: 1. Coronary artery disease. 2. Hypertension. 3. GERD. 4. Peripheral artery disease. PAST SURGICAL HISTORY: 1. Total hysterectomy. 2. Left carotid endarterectomy. 3. Three stents to the lower abdomen. 4. CT-guided left upper lobe pulmonary mass. 5. Appendectomy. 6. Cholecystectomy. 7. Tonsillectomy. FAMILY HISTORY: Father in his sleep at the age of 65. Maternal grandmother with diabetes. Sister with diabetes. Mother with breast cancer at the age of 87, lived to be 93. SOCIAL HISTORY: She is . She lives in [place]. She was a heavy smoker for more than 40 years, a pack to a pack and half per day. No alcohol or illicit drug use. She has 1 daughter that is 65 years of age. REVIEW OF SYSTEMS: Patient had no complaints except for continued shortness of breath. She reports she is always cold but no fever or chills. ALLERGIES: No known allergies. MEDICATIONS: Home medications are being compiled. PHYSICAL EXAMINATION: VITAL SIGNS: Have not been recorded. GENERAL: Ms. Izaguirre is a pleasant 84-year-old female who is sitting up in the bed in no acute distress. HEENT: Atraumatic, normocephalic. PERRL. NECK: Supple. Trachea midline. CARDIOVASCULAR: S1, S2 appreciated. No murmurs, gallops, or rubs noted. RESPIRATORY: Lung sounds clear except decreased airway entry in the right lower base. GASTROINTESTINAL: Soft, nontender, nondistended. Positive bowel sounds 4 quadrants. LOWER EXTREMITIES: Negative for edema. NEUROLOGIC: No focal deficits noted. LABS AND DIAGNOSTICS: Pending. ASSESSMENT AND PLAN: 1. Large right pleural effusion. The patient was a direct admit from Dr. Huang's office for an ultrasound-guided thoracentesis. In the a.m., we will consult Pulmonology and Cardiology per Dr. Huang's request. 2. Known right lung mass that is benign. 3. Anemia. 4. Hypertension. 5. Peripheral vascular disease. The patient is on Plavix and aspirin. 6. Gastroesophageal reflux disease. 7. Previous code status has been documented as a DNR level 1 on a further discussion when is at bedside. 8. Further recommendation to follow physician evaluation, laboratory and diagnostic data. Dictated by ARTURO White for George Diggs MD cc: George Diggs MD
--- NOTE | 2019-04-11 19:48 | HISTORY AND PHYSICAL ---
ADDENDUM: The patient has no major complaints. She is 84 years old. She was just admitted for diverticulitis, but she had a pleural effusion at that time. She has a vascular history, PVD, and I believe coronary artery blockages amenable to stent. For the last several days she has been getting progressively short of breath and not feeling well, and then she came in for evaluation. She was just discharged about 8 days ago. She has had a pleural effusion evaluated before and it has not revealed any malignancy, but now she has significant shortness of breath. She saw Dr. Huang, who did plain films on her and showed a moderate to large pleural effusion on the right side, and she was direct admitted for treatment. All the studies have been consistent with a right lower lobe effusion at least, not clear if it is loculated or not. Plan will be to pursue ultrasound-guided thoracentesis if Pulmonary agrees. They may want to pursue a thoracostomy. I guess it depends on the CT findings. I will defer to Dr. Curry about it, otherwise we can plan to pursue it tomorrow. She has been on aspirin and Plavix up until today, so we will also have to keep that in mind as far as being able to do any instrumentation. The patient did get very tearful and concerned. 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 This is a [id number] encounter note with ARTURO Mari. cc: George Diggs MD
[2019-04-11] MEDS: CULTURELLE PO SCH (21:56)
[2019-04-11] MEDS: COLACE PO SCH (21:56)
--- NOTE | 2019-04-12 00:22 | ECHO REPORT ---
ORDER DATE: 04/11/2019 MEASUREMENTS: Septal thickness 1.2, left ventricular internal diameter in diastole 3.8, posterior wall thickness 1.2, left ventricular internal diameter in systole 1.4, aortic root 2.7, left atrium 4.4. SUMMARY: 1. Fair quality study. 2. Aortic valve is trileaflet and opens normally on 2-dimensional images. Mitral annular calcification is demonstrated with mild to moderate thickening and calcification of the manager custom mitral leaflet with reduced posterior mitral leaflet mobility. The mitral valve area by pressure halftime method is 1.7 cm2, suggesting moderate mitral stenosis. There is mild to moderate mitral regurgitation. The peak gradient across the mitral valve is 10 mmHg with a mean gradient of 6.7 mmHg. Tricuspid valve without evidence of structural abnormality while pulmonic valve is not well demonstrated. There is mild tricuspid regurgitation. The estimated systolic PA pressure by Doppler is 50 mmHg, suggesting moderate pulmonary hypertension. Aortic root is normal in size. 3. Normal left ventricular chamber size with mild concentric left hypertrophy is demonstrated. The left ventricle is hyperdynamic with estimated left ejection fraction greater than 80%. No regional wall motion abnormalities evident. Doppler demonstrates a resting gradient in left ventricular outflow tract of 10-15 mmHg. Left atrium is moderate to severely enlarged on 2- dimensional images. Right atrium, right ventricle are normal in size with normal right ventricular systolic function. 4. No pericardial effusion. 5. Appearance of inferior vena cava suggests normal central venous pressure. CONCLUSIONS: 1. Mitral annular calcification with fibrocalcific changes of mitral valve with moderate mitral stenosis and mild to moderate mitral regurgitation. 2. Mild tricuspid regurgitation with moderate pulmonary hypertension by Doppler. 3. Mild concentric left hypertrophy with hyperdynamic left ventricle and estimated left ventricular ejection fraction greater than 80%. 4. Moderate to severe left atrial enlargement. cc: Jose Spencer MD
--- NOTE | 2019-04-12 02:38 | PULMONOLOGY CONSULTATION ---
DATE: 04/11/2019 REQUESTING CLINICIAN: Dr. Diggs. REASON FOR CONSULTATION: Large pleural effusion with pulmonary nodule. HISTORY OF PRESENT ILLNESS: Ms Izaguirre is an 84-year-old white female with ongoing tobacco use, peripheral vascular disease, who underwent evaluation in [place] for a mesenteric artery stenosis. There was some question that after stenting she may have had a stroke and she underwent CT scans. A mass was found in the right upper lobe. She was referred from [facility] to [place] to see Dr. Manuel Arce, who recommended that she undergo a CT-guided biopsy. Biopsy was performed 03/14 in the right upper lobe. Eight core specimens were obtained. No malignancy was identified, but the biopsy revealed thickened alveolar be with intra-alveolar proteinaceous material. Biopsy report does not indicate if special stains were performed for organisms. No tissue cultures obtained. The patient was admitted to the hospital 15 days later, when she started to have bright red blood per rectum and abdominal cramping. CT scan of the abdomen and pelvis was performed, which was consistent with mild diverticulitis. The patient now has a moderate right- sided pleural effusion, which was not evident on her prior scan performed during her CT-guided biopsy. She was subsequently discharged home. The patient was evaluated by Dr. Huang for increased shortness of breath. Chest x-ray yesterday revealed a large right-sided pleural effusion. The patient was admitted to the hospital for additional evaluation and treatment. The patient reports shortness of breath but denies cough or sputum production. She continues to smoke. PAST MEDICAL HISTORY: 1. Chronic obstructive pulmonary disease with ongoing tobacco use. 2. Recent abdominal stent placement for mesenteric ischemia. 3. Status post left carotid endarterectomy by Dr. Roshan Canela. 4. Moderate mitral regurgitation and mitral stenosis. 5. Hypertension. 6. Gastroesophageal reflux. 7. Status post cholecystectomy. 8. Status post hysterectomy. 9. Status post appendectomy. 10. Recent diverticular bleed as per above. SOCIAL HISTORY: The patient continues to smoke per above. She denies significant alcohol use. FAMILY HISTORY: Positive for diabetes. REVIEW OF SYSTEMS: Notable for increased shortness of breath, as per above. PHYSICAL EXAMINATION: General: Reveals a healthy-appearing white female in no distress. Vital signs: Blood pressure 153/52, heart rate 70, respiratory rate 20, oxygen saturation 99% on 3 L per nasal. HEENT: Pupils are equal and reactive. Oropharynx appears clear. Neck: Supple. Chest: Reveals diminished breath sounds right base. Cardiac: S1, S2. Abdomen: Soft. Extremities: Without edema. LABORATORIES: White blood count 12.8, hemoglobin 10.4, platelet count 360,000. Sodium 139, potassium 3.7, chloride 104, bicarbonate 23. Glucose 99. CT scan as per HPI. IMPRESSION: An 84-year-old with: 1. Right upper lobe mass with biopsy revealing no evidence of malignancy, etiology for area unknown. 2. Increasing right-sided pleural effusion. 3. Dyspnea. 4. Chronic obstructive pulmonary disease. 5. Nicotine addiction with tobacco use. 6. Significant vascular disease. PLAN: 1. Agree with plans for thoracentesis. The patient has mild leukocytosis and the process is new. Empyema will need to be ruled out. 2. Would delay cultures pending results of thoracentesis. 3. Encourage patient to discontinue tobacco use. 4. Restart Plavix when feasible given recent stenting of her mesenteric artery. 5. Check a QuantiFERON Gold TB test. However, patient denies prior TB exposure. cc: Destin Curry MD
[2019-04-12] MEDS: PRILOSEC PO SCH (06:02)
[2019-04-12 07:46] LABS: URINE SOURCE CLEAN CATCH
[2019-04-12 07:49] LABS: ALB/GLOB RATIO 1.1; ALBUMIN 3.1 g/dL (3.5-5.0); CALCIUM 8.4 mg/dL (8.8-10.2); CREATININE 0.9 mg/dL (0.5-0.9); MAGNESIUM 1.9 mg/dL (1.5-2.7); POTASSIUM 4.5 mmol/L (3.5-5.1); TOTAL BILIRUBIN 0.26 mg/dL (0.20-1.00)
[2019-04-12 07:50] LABS: BILIRUBIN URINE NEGATIVE (NEGATIVE); BLOOD URINE NEGATIVE (NEGATIVE); COLOR YELLOW; GLUCOSE URINE NEGATIVE (NEGATIVE); KETONE URINE NEGATIVE (NEGATIVE); LEUKOCYTES URINE NEGATIVE (NEGATIVE); NITRITE URINE NEGATIVE (NEGATIVE); PROTEIN URINE NEGATIVE (NEGATIVE); SP GRAVITY URINE 1.009; TURBIDITY URINE CLEAR (CLEAR); UR EPITHELIAL CELLS <10 /HPF (<10); URINE BACTERIA NEGATIVE /HPF; URINE RBC <10 /HPF (<10); URINE WBC <10 /HPF (<10); UROBILINOGEN URINE NORMAL (NORMAL)
[2019-04-12] MEDS ORDERED: ATIVAN IV ONE (09:23)
[2019-04-12] MEDS ORDERED: MORPHINE IV ONE (09:23)
[2019-04-12] MEDS: COLACE PO SCH ×2 (11:01→21:40)
[2019-04-12] MEDS: CENTRUM SILVER PO SCH (11:01)
[2019-04-12] MEDS: VITAMIN D PO SCH (11:02)
[2019-04-12] MEDS: CULTURELLE PO SCH ×2 (11:02→21:40)
[2019-04-12] MEDS: CRESTOR PO SCH (11:02)
[2019-04-12] MEDS: PRINIVIL PO SCH (11:02)
--- NOTE | 2019-04-12 11:16 | PROGRESS NOTE ---
DATE: 04/12/2019 SUBJECTIVE: Patient has no major complaints. OBJECTIVE: Blood pressure is 150/50, heart rate of 73, respiratory rate of 16, temperature 98.5 degrees, 99% on room air. Cardiovascular: Regular rate and rhythm. Pulmonary: Bilateral breath sounds clear to auscultation. GI: Soft, nontender, nondistended. Bowel sounds were positive. She has diminished breath sounds at the right side. Data: Today really unremarkable I guess but her CT scan showed a moderately large, simple right pleural effusion, 50% of the hemithorax, stable malignant nodule in the right upper lobe which is consistent with which has been biopsied. PROBLEM LIST: 1. Large pleural effusion. We will plan for thoracentesis. She is very reluctant to proceed because of concerns over pain. We explained that this has been rapidly progressive. She had evidence of it on the 1st on her CT scan. She had a biopsy done about a month ago. I doubt it is related to that but we will try to get fluid off and see how she does. 2. Hypertension. Continue her regular medications. 3. History of peripheral vascular disease and coronary artery disease. We will continue to monitor. We have to hold her aspirin and Plavix right now. Dr. Curry did recommend that she had mesenteric stents and we will need to resume her Plavix as soon as we can so make sure that there is no significant bleeding. We can go ahead and pursue that. Other than that, we will continue to follow. cc: George Diggs MD
[2019-04-12] MEDS ORDERED: SODIUM CHLORIDE 0.9% 10 ML ONE (11:30)
--- NOTE | 2019-04-12 12:53 | Diag Imaging Result Doc PS360 ---
CHEST-2 VIEWS - 04/12/2019 INDICATION: s/p thoracentesis COMPARISON: 04/11/2019 FINDINGS: There has been good drainage of the right basilar pleural effusion. There is no pneumothorax. IMPRESSION: No complication. Electronically signed by Geovani Ricardo 04/12/2019 12:51 PM
[2019-04-12] MEDS ORDERED: TYLENOL PO PRN (13:53)
[2019-04-12] MEDS ORDERED: NORCO-5 PO PRN (13:54)
[2019-04-12 15:39] LABS: BODY FLUID SOURCE PLEURAL FLUID; MONOS 28 %; PH BODY FLUID 7.5; POLYS 72 %; SPECIMEN PLEURAL FLUID; WBC BF 2716 /cumm
[2019-04-12 15:58] LABS: AMYLASE BODY FLUID 33 U/L; GLUCOSE BODY FLUID 131 mg/dL; LDH BODY FLUID 196 U/L; TOTAL PROT BODY FLUID 3.4 g/dL
--- NOTE | 2019-04-12 20:13 | OPERATIVE NOTE ---
PROCEDURE DATE: INDICATIONS: Large pleural effusion. Thoracentesis. HISTORY: This is a 84-year-old female. She underwent effusion tapping on the right side for a right pleural effusion under ultrasound guidance about 2 cm to the pocket of fluid. Consent was signed. She was marked on the right side. We had a discussion about the procedure. Preoperatively, she got a little bit of morphine because she was very scared of the procedure and the pain associated with her previous lung biopsy. We gave her 2 of morphine. She was awake and alert during the process. She had a large effusion. PROCEDURE: We anesthetized locally. We placed the catheter. We had a fairly low cellularity, but blood tinged fluid throughout. We got about 1.6 L off without difficulty. She tolerated the procedure without difficulty. Post-thoracentesis films show good drainage. There is no evidence of pneumothorax. Specimens were sent off. cc: George Diggs MD
[2019-04-13 07:15] LABS: BASO# 0.04 X1000 (0.0-0.2); BASO% 0.3 % (0.0-0.8); EOS# 0.84 X1000 (0.0-0.7); HEMATOCRIT 35.1 % (37.0-47.0); HEMOGLOBIN 10.5 g/dL (12.0-16.0); IMM GRAN# 0.12 X1000 (0.0-0.04); IMM GRAN% 0.9 % (0.0-0.5); LYMPH# 1.88 X1000 (1.2-3.4); LYMPH% 13.3 % (20.5-51.1); MCH 26.9 PG (27-31); MCHC 29.9 g/dL (33-37); MONO# 1.57 X1000 (0.11-0.59); MONO% 11.1 % (1.7-9.3); NEUT# 9.64 X1000 (1.4-6.5); NEUT% 68.4 % (42.2-75.2); PLT 378 X1000 (130-400); RDW 15.9 % (11.5-14.5); WBC 14.09 X1000 (4.8-10.8)
--- NOTE | 2019-04-13 07:41 | Diag Imaging Result Doc PS360 ---
EXAM: CHEST-PORTABLE - 04/13/2019 HISTORY: dyspnea TECHNIQUE: Portable chest COMPARISON: 04/12/2019 FINDINGS: There is a small right pleural effusion which has increased. There has been mild increase in atelectasis at the right base and right midlung. The left lung remains mostly clear. There is apparent mild skinfold artifact over the superior lateral right chest. Small pneumothorax at this location cannot be entirely excluded. Heart size is normal. IMPRESSION: Small right pleural effusion which has increased. Mild increase in atelectasis at right base and right midlung. Apparent mild skinfold artifact over superior lateral right chest. Small pneumothorax at this location cannot be entirely excluded, however. Electronically signed by Brady Morales 04/13/2019 7:39 AM
[2019-04-13 07:44] LABS: ALB/GLOB RATIO 1.1; ALBUMIN 3.2 g/dL (3.5-5.0); CALCIUM 8.6 mg/dL (8.8-10.2); DIRECT BILIRUBIN 0.1 mg/dL (0.00-0.20); POTASSIUM 5.1 mmol/L (3.5-5.1); TOTAL BILIRUBIN 0.36 mg/dL (0.20-1.00); TOTAL PROTEIN 6.1 g/dL (6.3-8.3)
--- NOTE | 2019-04-13 08:08 | PULMONOLOGY PROGRESS NOTE ---
DATE: 04/12/2019 INTERIM HISTORY: The patient underwent thoracentesis earlier today. She reports her breathing has improved. She is without specific complaints this evening. OBJECTIVE: The patient has been afebrile for the last 24 hours. Blood pressure 134/41, heart rate 77, respiratory rate 18, oxygen saturation 99% on room air. HEENT: Pupils are equal and reactive. Oropharynx appears clear. Neck: Supple. Chest: Reveals crackles at the right base. Cardiac Examination: S1-S2. Abdomen: Soft. Extremities: Without edema. Laboratory Data: Pleural fluid is reviewed. PH 7.5, white blood count 27,000, glucose 131, protein 3.4, LDH 196, amylase 33. IMPRESSION: An 84-year-old with: 1. Right upper lobe mass with negative CT-guided biopsy. 2. Exudative pleural effusion. 3. Recent admission to the hospital for diverticular bleed. 4. Chronic obstructive pulmonary disease. 5. Vascular disease. 6. Nicotine addiction with ongoing tobacco use. DISCUSSION: An 84-year-old with problems outlined above. She currently has improved with removal of the pleural fluid. It is exudative in nature. RECOMMENDATIONS: 1. Await for cytology and culture results. If these are negative, I would prefer outpatient followup x-rays. If she were younger and in better condition with less comorbidities, I would consider a more aggressive approach such as a thoracoscopy. 2. Continue smoking cessation. 3. Restart Plavix tomorrow given abdominal stent. 4. Await QuantiFERON Gold TB test. cc: Destin Curry MD
[2019-04-13] MEDS: PRINIVIL PO SCH (09:30)
[2019-04-13] MEDS: VITAMIN D PO SCH (09:30)
[2019-04-13] MEDS: CULTURELLE PO SCH (09:30)
[2019-04-13] MEDS: CENTRUM SILVER PO SCH (09:30)
[2019-04-13] MEDS: COLACE PO SCH (09:30)
[2019-04-13] MEDS: PRILOSEC PO SCH (09:30)
[2019-04-13] MEDS: CRESTOR PO SCH (09:30)
[2019-04-13 13:16] VITALS: BP 126/45
--- NOTE | 2019-04-14 14:42 | DISCHARGE SUMMARY ---
ADMISSION DATE: 04/11/2019 DISCHARGE DATE: 04/13/2019 PRIMARY CARE PROVIDER: Dr. Haresh Delarosa. ONCOLOGIST: Dr. Arjun Huang. VASCULAR SURGEONS: Dr. Jordan Chaudhry and Dr. Roshan Canela PRIMARY PROCEDURES: Chest CT, moderately large simple right pleural effusion. Thoracentesis where they removed 1.6 L without difficulty. DISCHARGE DIAGNOSES: 1. Large right pleural effusion, status post thoracentesis where 1.6 L was removed without difficulty. She will continue to follow with Dr. Curry as well as Dr. Huang for results of cytology. 2. Chronic obstructive pulmonary disease with ongoing tobacco use. 3. Recent abdominal stent placement for mesenteric ischemia. 4. Hypertension. 5. Gastroesophageal reflux disease. 6. Recent admission and discharge for diverticular bleed. 7. Right upper lobe mass with a biopsy with no evidence of malignancy. 8. Cervical and uterine cancer history. HOSPITAL COURSE: Briefly, Ms. Izaguirre is an 84-year-old, female who was recently discharged from our service for a diverticular bleed. She also carries a past medical history of coronary artery disease, arthritis, hypertension, uterine and cervical cancer, status post total hysterectomy, recent diagnosis of a lung mass that was found to be benign after a CT-guided biopsy. She reported that after her last discharge, she went home and continued to feel short of breath. She had a followup with Dr. Huang who did a chest x-ray that showed a large right pleural effusion. She was a direct admission to have an ultrasound-guided thoracentesis and a cardiology consult. She underwent a thoracentesis by Dr. Diggs where he removed 1.6 L of fluid. She is to continue to follow up with Dr. Huang and Dr. Curry for cytology results. She has been urged to quit smoking and she is to resume her Plavix given her most recent abdominal stenting and her other vasculopathic issues. She is being discharged home today. VITAL SIGNS: Temperature is 97.5 degrees, heart rate 74, respirations 20, blood pressure 126/45, O2 is 100% on room air. DISCHARGE DIET: Regular. DISCHARGE MEDICATIONS: 1. Aspirin 81 mg p.o. daily. 2. Colace 200 mg p.o. b.i.d. 3. Lisinopril 20 mg p.o. daily. 4. Prilosec 40 mg p.o. daily. 5. Plavix 75 mg p.o. daily. 6. Rosuvastatin calcium 5 mg p.o. daily. 7. Vitamin D 2 tablets p.o. daily. 8. Centrum Silver 1 each p.o. daily. 9. Culturelle 1 each p.o. daily. 10. Cove 5 one to two tablets p.o. q.4 hours p.r.n. FOLLOWUP: Ms. Izaguirre is being discharged back home with her . She is to continue followup with Dr. Curry and Dr. Huang. She can return to the ED or call 911 for any worsening of symptoms. Dictated by ARTURO White for Govind Maldonado MD Addendum: Patient seen and examined by myself. Agree with ARTUOR note. It reflects my assessment and plan. Patient is being discharged from hospital in stable condition. Will be seen by PCP in a week. cc: Govind Maldonado MD MTDD
== END 2019-04-13 15:28 | disposition home or self-care (01) | DRG 188 ==
LOC: DIRADM 14:13 → SUATTDRO 14:13 → 3N 14:25
PROVIDERS: ATTEND Internal Medicine